=== PATIENT | male | born 1985 | race Caucasian/White ===

== ENCOUNTER 2022-03-08 08:00 | Outpatient (CLI) | payer BC ==
--- NOTE | 2022-03-08 17:21 | XRAY Report ---
PROCEDURE: Chest 2 View X-Ray INDICATIONS: COUGH TECHNIQUE: 2 views of the chest. COMPARISON: 03/09/2016. FINDINGS: Surgical changes and devices: None. Lungs and pleura: No pleural effusions or pneumothorax. Lungs are clear. Mediastinum: Mediastinal contours are normal. Heart size is normal. Bones and chest wall: No suspicious bony abnormalities. Soft tissues appear unremarkable. IMPRESSION: 1. No acute cardiopulmonary disease. Reviewed by: Rosendo Camacho MD on 03/08/2022 5:20 PM PDT Approved by: Rosendo Camacho MD on 03/08/2022 5:20 PM PDT Station ID: [id number]
== END 2022-03-08 23:59 | disposition home or self-care (01) ==
LOC: DI.S 08:00
PROVIDERS: ATTEND Registered Nurse
DX: R05.3 Chronic cough (principal); R53.83 Other fatigue

== ENCOUNTER 2022-12-15 20:28 | Emergency (ER) | payer BC ==
[2022-12-15 20:35] VITALS: BP 157/95
[2022-12-15] MEDS ORDERED: DEXAMETHASONE 10 MG/ML VIAL PO STA (20:54)
[2022-12-15] MEDS ORDERED: CHERRY SYRUP 10 ML UDC PO ONE (20:54)
--- NOTE | 2022-12-15 20:59 | ED Physician Documentation ---
History of Present Illness - Stated complaint Stated Complaint: LT MIDDLE FINGER SWELLING - Chief complaint Chief Complaint: Ext Problem - History obtained from History obtained from: Patient - Additonal information Additional information: This is a generally healthy 37-year-old male who presents with leftMiddle finger pain after being stung by wasp twice yesterday. He states swelling worsened a little bit today extending from his finger into the dorsum of the hand. He Has been using a cool compress a couple times a day and applying topical Benadryl but has not taken any oral medication. He has no other signs of allergic reaction or anaphylaxis. No difficulty breathing, no hives, no weakness. He is able to fully extend the middle finger and bend about 45 degrees, full flexion and extension of the wrist. Review of Systems Constitutional: reports: Reviewed and negative (All other systems reviewed and are negative except as noted per HPI) PD PAST MEDICAL HISTORY - Past Medical History Past Medical History: No Cardiovascular: None Respiratory: None Neuro: None Endocrine/Autoimmune: None GI: None : None HEENT: None Psych: None Musculoskeletal: None Derm: None - Past Surgical History Past Surgical History: No - Present Medications Home Medications: Ambulatory Orders Medication Instructions Recorded Confirmed No Known Home Medications 12/15/22 12/15/22 - Allergies Allergies/Adverse Reactions: Allergies Allergy/AdvReac Type Severity Reaction Status Date / Time No Known Drug Allergies Allergy Verified 12/15/22 20:32 - Social History Does the pt smoke?: No Smoking Status: Never smoker Does the pt drink ETOH?: No Does the pt have substance abuse?: No - Immunizations Immunizations are current?: Yes - POLST Patient has POLST: No PD ED PE NORMAL - Vitals Vital signs reviewed: Yes - General General: Alert and oriented X 3, No acute distress, Well developed/nourished - HEENT HEENT: Atraumatic, Moist mucous membranes - Cardiac Cardiac: RRR, No murmur - Respiratory Respiratory: No respiratory distress, Clear bilaterally - Derm Derm: Normal color, Warm and dry, No rash - Extremities Extremities: Other (Left middle finger swelling and mild swelling on the dorsum of the left hand, no erythema. No palpable abscesses or signs of cellulitis.Full flexion extension of the left wrist decreased flexion of the left middle finger due to swelling) Results - Vitals Vitals: Vital Signs - 24 hr 01/28/23 20:32 Temperature 37.3 C Heart Rate 90 Respiratory 16 Rate Blood Pressure 157/95 H O2 Saturation 98 Oxygen O2 Source Room air PD Medical Decision Making - ED course Complexity details: d/w patient ED course: Pt presented w/ left finger and dorsal hand swelling due after wasp stngs yesterday. No signs of abscess or cellulitis on exam today. Some decreased ROM of ayo left middle finger due to swelling. Advised swelling will imrpvoe in the next few days. Recommended cool compress, ibuprofen, oral benadryl. pt given 1 dose of decadron PO here. return precautions reviewed. Departure - Departure Disposition: Home, Self Care Clinical Impression: Wasp sting Qualifiers: Encounter type: initial encounter Injury intent: accidental or unintentional Qualified Code(s): T63.461A - Toxic effect of venom of wasps, accidental (unintentional), initial encounter Condition: Good Instructions: ED Bite Sting Insect Gen Allergic React Comments: You have swelling from a wasp sting. This can take several days to improve. Take oral benadryl every 6 hours as needed and continue frequent cool compresses and elevating the hand to reduce swelling. You can take ibuprofen as well. You were given a one time dose of decadron (steroid) in the ER. Return if signs of infection.
== END 2022-12-15 21:03 | disposition home or self-care (01) ==
LOC: ED 20:28
DX: T63.461A Toxic effect of venom of wasps, accidental (unintentional), initial encounter (principal)
CPT/HCPCS: 99282; 99283; A9270

== ENCOUNTER 2023-06-10 14:53 | Emergency (ER) | payer BC ==
[2023-06-10] MEDS ORDERED: DEXAMETHASONE 10 MG/ML VIAL PO STA (15:10)
[2023-06-10] MEDS ORDERED: CHERRY SYRUP 10 ML UDC PO ONE (15:10)
[2023-06-10 15:11] VITALS: BP 150/90
--- NOTE | 2023-06-10 15:12 | ED Physician Documentation ---
PD HPI UPPER EXT INJURY - Stated complaint Stated Complaint: BEE STING - Chief complaint Chief Complaint: Ext Problem - History obtained from History obtained from: Patient - Additonal information Additional information: 38-year-old gentleman was stung by bee to the right thumb yesterday and is here requesting dexamethasone as it has been helpful in the past. No diffuse symptoms. No throat swelling, wheezing, diffuse rash. PD PAST MEDICAL HISTORY - Past Medical History Cardiovascular: None Respiratory: None Neuro: None Endocrine/Autoimmune: None GI: None : None HEENT: None Psych: None Musculoskeletal: None Derm: None - Past Surgical History Past Surgical History: No - Present Medications Home Medications: Ambulatory Orders Medication Instructions Recorded Confirmed dexAMETHasone [Decadron] 4 mg PO BIDWM #5 tablet 06/10/23 - Allergies Allergies/Adverse Reactions: Allergies Allergy/AdvReac Type Severity Reaction Status Date / Time No Known Drug Allergies Allergy Verified 06/10/23 15:04 - Social History Does the pt smoke?: No Smoking Status: Never smoker Does the pt drink ETOH?: No Does the pt have substance abuse?: No - Immunizations Immunizations are current?: Yes - POLST Patient has POLST: No PD ED PE NORMAL - Vitals Vital signs reviewed: Yes - General General: Alert and oriented X 3, No acute distress - Extremities Extremities: Other (There is a bee sting to the distal part of the right thumb with mild swelling and redness.) - Neuro Neuro: Alert and oriented X 3, Normal speech Results - Vitals Vitals: Vital Signs - 24 hr 06/10/23 15:04 Temperature 36.8 C Heart Rate 68 Respiratory 16 Rate Blood Pressure 150/90 H O2 Saturation 98 Oxygen O2 Source Room air Departure - Departure Disposition: 01 Home, Self Care Clinical Impression: Bee sting Condition: Good Record reviewed to determine appropriate education?: Yes Instructions: ED Bite Sting Insect Local Allergic React Prescriptions: dexAMETHasone [Decadron] 4 mg PO BIDWM #5 tablet Comments: You were seen today for bee sting with reaction locally. You received a dose of dexamethasone here and I wrote a prescription for a couple more doses. Should improve over the next few days. Return if you worsen.
== END 2023-06-10 15:27 | disposition home or self-care (01) ==
LOC: ED 14:53
DX: T63.441A Toxic effect of venom of bees, accidental (unintentional), initial encounter (principal)
CPT/HCPCS: 99282; 99283; A9270

== ENCOUNTER 2023-08-26 15:26 | Emergency (ER) | payer BC ==
[2023-08-26 15:40] VITALS: BP 137/80; O2SAT 98
[2023-08-26] MEDS ORDERED: CHERRY SYRUP 10 ML UDC PO ONE (15:57)
[2023-08-26] MEDS ORDERED: DEXAMETHASONE 10 MG/ML VIAL PO STA (15:57)
--- NOTE | 2023-08-26 15:59 | ED Physician Documentation ---
PD HPI SKIN - Stated complaint Stated Complaint: BEE STING - Chief complaint Chief Complaint: Allergic Rx - History obtained from History obtained from: Patient (Stung to the left hand by a bee yesterday. He has localized pain and swelling. No throat swelling, shortness of breath, dizziness, or nausea. No diffuse rash.) PD PAST MEDICAL HISTORY - Past Medical History Cardiovascular: None Respiratory: None Neuro: None Endocrine/Autoimmune: None GI: None : None HEENT: None Psych: None Musculoskeletal: None Derm: None - Past Surgical History Past Surgical History: No - Present Medications Home Medications: Ambulatory Orders Medication Instructions Recorded Confirmed No Known Home Medications 08/26/23 08/26/23 - Allergies Allergies/Adverse Reactions: Allergies Allergy/AdvReac Type Severity Reaction Status Date / Time No Known Drug Allergies Allergy Verified 06/10/23 15:04 - Social History Does the pt smoke?: No Smoking Status: Never smoker Does the pt drink ETOH?: No Does the pt have substance abuse?: No - Immunizations Immunizations are current?: Yes - POLST Patient has POLST: No PD ED PE NORMAL - Vitals Vital signs reviewed: Yes - General General: Alert and oriented X 3, No acute distress - HEENT HEENT: Pharynx benign - Respiratory Respiratory: No respiratory distress - Extremities Extremities: Other (Swelling without significant redness to the dorsum of the left hand with full range of motion.) - Neuro Neuro: Alert and oriented X 3, Normal speech Results - Vitals Vitals: Vital Signs - 24 hr 08/26/23 15:29 Temperature 36.9 C Heart Rate 72 Respiratory 20 Rate Blood Pressure 137/80 H O2 Saturation 98 Oxygen O2 Source Room air PD Medical Decision Making - ED course ED course: 38-year-old gentleman with left hand bee sting without anaphylaxis. Administered Decadron and counseled on expected course of disease and return precautions. Departure - Departure Disposition: 01 Home, Self Care Clinical Impression: Local reaction to bee sting Qualifiers: Encounter type: initial encounter Injury intent: accidental or unintentional Qualified Code(s): T63.441A - Toxic effect of venom of bees, accidental (unintentional), initial encounter Condition: Good Record reviewed to determine appropriate education?: Yes Instructions: ED Allergic Reaction Local Other Comments: You were seen today for a localized reaction to a bee sting. You have no signs or symptoms of anaphylaxis. We gave you a long-acting dose of steroids which should be helpful. Ice and elevation may also help. Return if worse.
== END 2023-08-26 16:03 | disposition home or self-care (01) ==
LOC: ED 15:26
DX: T63.441A Toxic effect of venom of bees, accidental (unintentional), initial encounter (principal); R22.32 Localized swelling, mass and lump, left upper limb; L53.9 Erythematous condition, unspecified
CPT/HCPCS: 99282; A9270

== ENCOUNTER 2023-11-25 13:41 | Outpatient (CLI) | payer OTHER, BC | END 2023-11-25 23:59 | disposition critical access hospital (66) | LOC: EMS 13:41 | DX: Z04.1 Encounter for examination and observation following transport accident (principal); R55 Syncope and collapse; Y99.0 Civilian activity done for income or pay | CPT/HCPCS: A0425; A0429 ==

== ENCOUNTER 2023-11-25 14:06 | Emergency (ER) | payer OTHER, BC ==
[2023-11-25 14:20] VITALS: O2SAT 100
[2023-11-25 14:52] LABS: BASOPHILS # (AUTO) 0.1 10^3/uL (0.0-0.1); BASOPHILS % (AUTO) 0.9 %; EOSINOPHILS # (AUTO) 0.1 10^3/uL (0.0-0.7); HCT - HEMATOCRIT 48.4 % (42.0-52.0); HGB - HEMOGLOBIN 16.6 g/dL (14.0-18.0); LYMPHOCYTES # (AUTO) 1.4 10^3/uL (1.5-3.5); LYMPHOCYTES % (AUTO) 24.7 %; MEAN CORPUSCULAR HEMOGLOBIN 30.4 pg (27.0-31.0); MEAN CORPUSCULAR HGB CONC 34.3 g/dL (32.0-36.0); MEAN CORPUSCULAR VOLUME 88.6 fL (80.0-94.0); MEAN PLATELET VOLUME 8.2 fL (7.4-11.4); MONOCYTES # (AUTO) 0.4 10^3/uL (0.0-1.0); MONOCYTES % (AUTO) 6.2 %; NEUTROPHILS # (AUTO) 3.9 10^3/uL (1.5-6.6); NEUTROPHILS % (AUTO) 66.9 %; PLT - PLATELET COUNT 305 10^3/uL (130-450); RED BLOOD COUNT 5.46 10^6/uL (4.70-6.10); RED CELL DISTRIBUTION WIDTH 12.1 % (12.0-15.0); WHITE BLOOD COUNT 5.8 x10^3/uL (4.8-10.8)
[2023-11-25 15:15] LABS: ALBUMIN/GLOBULIN RATIO 1.9 (1.0-2.2); BILIRUBIN,TOTAL 0.7 mg/dL (0.2-1.0); CALCIUM 10.1 mg/dL (8.5-10.3); CREATININE 1.1 mg/dL (0.6-1.3); TOTAL PROTEIN 7.7 g/dL (6.4-8.9)
--- NOTE | 2023-11-25 17:21 | ED Physician Documentation ---
History of Present Illness - Stated complaint Stated Complaint: SYNCOPAL EPISODE - Chief complaint Chief Complaint: Cardiac - Additonal information Additional information: Patient is an otherwise healthy 38-year-old male presenting to the emergency department chief complaint syncope. He works as a production truck driver. Reports that today while driving his truck he began to feel hot all over his body. He has had Similar sensations once in the past on that occasion led to a syncopal event and he immediately pulled over the truck and lost consciousness. He reports that after reviewing the trucks internal camera he was unconscious for about 20 seconds. No convulsive episodes noted. He denies any chest pain, shortness of breath, heart palpitations associated with his symptoms. He denies any clear history of cardiac but does report that he had a grandfather who he believes could have from a cardiac related complaint in his 30s to 40s. He is uncertain about this history however. He did report 1 similar episode in the past in which he passed out hat occurred approximately 4 years ago however that was also on a particularly warm day and he reports that multiple other members of his work team on that dayHad similar episodes or other heat related symptoms at that time. He currently reports that he feels well. He denies for any chest pain, shortness of breath, heart palpitations, headache, nausea, vomiting, abdominal pain. Reports has been eating and drinking well. Denies any illicit substance abuse. Review of Systems Constitutional: denies: Fever Eyes: denies: Loss of vision Ears: denies: Loss of hearing Nose: denies: Rhinorrhea / runny nose Throat: denies: Dental pain / toothache Cardiac: denies: Chest pain / pressure Respiratory: denies: Dyspnea GI: denies: Abdominal Pain : denies: Dysuria Skin: denies: Rash Musculoskeletal: denies: Neck pain Neurologic: reports: Syncope. denies: Generalized weakness, Focal weakness PD PAST MEDICAL HISTORY - Past Medical History Cardiovascular: None Respiratory: None Neuro: None Endocrine/Autoimmune: None GI: None : None HEENT: None Psych: None Musculoskeletal: None Derm: None - Past Surgical History Past Surgical History: No - Present Medications Home Medications: Ambulatory Orders Medication Instructions Recorded Confirmed No Known Home Medications 08/26/23 08/26/23 - Allergies Allergies/Adverse Reactions: Allergies Allergy/AdvReac Type Severity Reaction Status Date / Time No Known Drug Allergies Allergy Verified 06/10/23 15:04 - Social History Does the pt smoke?: No Smoking Status: Never smoker Does the pt drink ETOH?: No Does the pt have substance abuse?: No - Immunizations Immunizations are current?: Yes - POLST Patient has POLST: No PD ED PE NORMAL - Vitals Vital signs reviewed: Yes (wnl) - General General: Alert and oriented X 3, No acute distress, Well developed/nourished - HEENT HEENT: Atraumatic, PERRL, EOMI, Ears normal, Moist mucous membranes, Pharynx benign - Neck Neck: Supple, no meningeal sign, No bony TTP, No adenopathy, Thyroid normal, No JVD - Cardiac Cardiac: RRR, No gallop, Strong equal pulses - Respiratory Respiratory: No respiratory distress, Clear bilaterally - Abdomen Abdomen: Normal bowel sounds, Non tender - Male Male : Deferred - Rectal Rectal: Deferred - Neuro Neuro: Alert and oriented X 3, cell tower climber 2-12 intact, No motor deficit, Normal speech Results - Vitals Vitals: Vital Signs - 24 hr 11/25/23 14:11 Temperature 36.7 C Heart Rate 75 Respiratory 18 Rate Blood Pressure 145/94 H O2 Saturation 100 Oxygen O2 Source Room air - EKG (time done) 1414 EKG releavant findings:: EKG personally interpreted by author of this note. Relevant findings are: Sinus rhythm with a rate 69 bpm. Normal axis. Normal [place], QRS, QTc intervals. No ST segment elevations or T wave inversions. - Labs Labs: Laboratory Tests 11/25/23 11/25/23 14:43 14:43 WBC 5.8 RBC 5.46 Hgb 16.6 Hct 48.4 MCV 88.6 MCH 30.4 MCHC 34.3 RDW 12.1 Plt Count 305 MPV 8.2 Neut # (Auto) 3.9 Lymph # (Auto) 1.4 L [place] # (Auto) 0.4 Eos # (Auto) 0.1 Baso # (Auto) 0.1 Absolute Nucleated RBC 0.00 Nucleated RBC % 0.0 Sodium 136 Potassium 4.0 Chloride 99 L Carbon Dioxide 30 Anion Gap 7.0 BUN 14 Creatinine 1.1 Estimated GFR (MDRD) 75 L Glucose 111 H Calcium 10.1 Total Bilirubin 0.7 AST 17 ALT 33 Alkaline Phosphatase 73 Total Protein 7.7 Albumin 5.0 Globulin 2.7 Albumin/Globulin Ratio 1.9 Lipase 34 PD Medical Decision Making - ED course Complexity details: d/w patient ED course: Patient otherwise healthy 38-year-old male presenting to the emergency department with syncope. 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 This subsequently developed into a sensation of lightheadedness and he reports that he syncopized for approximately 20 seconds. Denied any chest pain, shortness of breath or heart palpitations associated with the event. He does report that he has had 1 similar event approximately 4 years ago. He did report that he believes he could have a grandfather who may have had cardiac issues however was not able to provide a clear history of sudden cardiac and he does not think any of his other family members have had similar problems. He otherwise feels fine at this time and denies any ongoing symptoms, recent illnesses or changes in oral intake. His physical exam did not demonstrate any murmurs, rubs, gallops. No difference in pulse strength between his extremities and no focal or lateralizing neurologic deficits. His EKG in the emergency department shows a sinus rhythm with no indications of prolonged QT interval, [place], right ventricular arrhythmogenic dysplasia, hypertrophic cardiomyopathy or other concerning signs for acute cardiac ischemia or dysrhythmia. His labs are similarly extremely reassuring. He is overall very low risk for serious outcomes associated with syncopePer [place] syncope rules. Do not believe that there is indication for emergent echocardiogram at this time and the absence of any chest pain makes the possibility of an acute coronary syndrome, aortic dissection or similar pathology extremely unlikely. Did discuss all of his findings with him here in the emergency department. We discussed the importance of follow-up with primary careAnd I will provide him with a list for local area primary care doctors With whom he will be able to follow-up. Encouraged prompt return to the emergency department for any new or worsening symptoms. L&I paperwork [id number] completed. Departure - Departure Disposition: 01 Home, Self Care Clinical Impression: Vasovagal syncope Instructions: ED Syncope Vasovagal Comments: [facility] you [facility] Today in the emergency department you were evaluated for any possible dangerous or life-threatening medical condition. Overall the testing performed in the emergency department today including your physical exam, EKG and blood work were all very reassuring. The event that she described here in the emergency department is very consistent with what is known as a vasovagal syncopal event. Attaches some information about this condition. Given however that this has happened twice over the course of the last 4 years I would like you to follow-up with a primary care doctor soon as possible in order to arrange for reevaluation and and possible further testing. Attached in this discharge packet is information about local area PCPs with whom you can follow-up. Otherwise I recommend getting plenty of rest and drinking plenty fluids for the next few days. If it anytime you have any new or worsening symptoms such as recurrent events of syncope, feelings of lightheadedness, shortness of breath, chest pain, palpitations or any other concerning symptoms please return to the emergency department immediately for reevaluation. Forms: PCP List
[2023-11-25 17:41] VITALS: BP 146/79
== END 2023-11-25 17:35 | disposition home or self-care (01) ==
LOC: EDUNIT# → ED 14:06
DX: R55 Syncope and collapse (principal)
CPT/HCPCS: 1040M; 36415; 80053; 83690; 85025; 93005; 99283